=== PATIENT | female | born 1975 | race Two or more races ===

== ENCOUNTER 2021-06-13 11:06 | Outpatient (CLI) | payer MEDICAID, SELFPAY ==
[2021-06-18 08:36] LABS: HPV APTIMA, High Risk Negative (Negative)
== END 2021-06-13 23:59 | disposition home or self-care (01) ==
PROVIDERS: Visit Provider Student in an Organized Health Care Education/Training Program
DX: Z12.4 Encounter for screening for malignant neoplasm of cervix (principal)
CPT/HCPCS: 87624; 88175; G0145

== ENCOUNTER 2021-07-17 10:31 | Outpatient (CLI) | payer MEDICAID, SELFPAY ==
[2021-07-18 22:07] LABS: Chlamydia By Nucleic Acid AMP Negative (Negative)
[2021-07-18 22:47] LABS: Gonococcus By Nucleic Acid AMP Negative (Negative)
== END 2021-07-17 23:59 | disposition home or self-care (01) ==
LOC: LABSPEC 10:32
PROVIDERS: Visit Provider Student in an Organized Health Care Education/Training Program
DX: Z11.3 Encounter for screening for infections with a predominantly sexual mode of transmission (principal)
CPT/HCPCS: 87491; 87591